=== PATIENT | female | born 1965 | race American Indian/Alaskan Native ===

== ENCOUNTER 2018-04-29 03:52 | Emergency (ER) | payer MEDICARE ==
--- NOTE | 2018-04-29 06:20 | XRay Report ---
FINAL REPORT PROCEDURE: XR CHEST ROUTINE 2V TECHNIQUE: PA and lateral chest radiographs were obtained. CPT 40074 HISTORY: SOB COMPARISON: No prior studies are available for comparison. FINDINGS: Heart: Normal. Mediastinum/Vessels: Normal. Lungs/Pleural space: Normal. Bony thorax: No acute osseous abnormality. Other: IMPRESSION: Normal examination.
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
[2018-04-29] MEDS ORDERED: ULTRAM PO ONE (10:10)
[2018-04-29] MEDS ORDERED: ULTRAM ONE (11:00)
[2018-04-29 11:03] VITALS: BP 167/89
== END 2018-04-29 10:40 | disposition home or self-care (01) ==
LOC: ED 03:52
DX: J06.9 Acute upper respiratory infection, unspecified (principal); M54.16 Radiculopathy, lumbar region; M19.90 Unspecified osteoarthritis, unspecified site; J45.909 Unspecified asthma, uncomplicated; F41.9 Anxiety disorder, unspecified; F20.9 Schizophrenia, unspecified; E11.43 Type 2 diabetes mellitus with diabetic autonomic (poly)neuropathy; K31.84 Gastroparesis; M10.9 Gout, unspecified; Z90.49 Acquired absence of other specified parts of digestive tract; Z79.4 Long term (current) use of insulin; Z79.899 Other long term (current) drug therapy; Z88.8 Allergy status to other drugs, medicaments and biological substances; Z91.013 Allergy to seafood
CPT/HCPCS: 71046; 82962; 93005; 93010; 99283

== ENCOUNTER 2019-09-06 08:56 | Emergency (ER) | payer MEDICARE ==
[2019-09-06 09:21] VITALS: BP 144/84
--- NOTE | 2019-09-06 10:13 | Emergency Department Report ---
Chief Complaint: Extremity Injury, Lower Stated Complaint: RT TOE INJURY/HIP/KNEE PAIN Time Seen by Provider: 09/06/19 10:02 - HPI History of Present Illness: Patient is a 53-year-old female presents emergency room with complaints of chronic right small toe pain that occurred on 08/01/19. She states that she hit it against something on . she that she was concerned because she is diabetic. She has also had chronic right ankle pain for on and off for se veral months. Denies any injury to the ankle. she has not seen anybody for these complaints. denies any fever, drainage, ulceration, blister, numbness, weakness, difficulty ambulating. she says she has been taking tramadol but still has discomfort. she states she is out of her tramadol and needs a refill. VSS on exam: FROM of the BLE no bony TTP of the BLE, no deformities right small toe with very small amount of edema, there is small amount of dried blood present to the end of the right small toenail, pt is able to move the right small toe with no difficulty there is no ulcerations or blisters, there is no ulceration between the toes there is no erythema or increased warmth compartments are soft no skin changes neurovascularly intact no signs of septic joint, no signs of diabetic ulcer, no signs of deformity, no signs of gout, no signs of infection given that this is chronic in nature will refer pt to orthopedic and podiatry pt is presenting with a non medical emergency at this time medical screening examination performed and there is no threat to life or limb at this time pt referred to the appropriate resources and discussed strict return precautions I looked pt up on [employer] aware she received on 09/03/2019: tramadol 50 mg :90 tablets oxycodone 10 mg :80 tablets alprazolam 1 mg :60 tablets It appears the patient may be exhibiting drug-seeking behavior, will not be prescribing patient any more opioids. Advised patient that she can take Tylenol over the counter. - Exam Vital Signs: Vital Signs 09/06/19 09:19 Temperature 98.6 F Pulse Rate 97 H Respiratory 20 Rate Blood Pressure 144/84 [Right] O2 Sat by Pulse 95 Oximetry MSE screening note: Focused history and physical exam performed. ED Disposition for MSE Clinical Impression: Chronic toe pain, right foot Chronic ankle pain Qualifiers: Laterality: right Qualified Code(s): M25.571 - Pain in right ankle and joints of right foot Disposition: MED SCREENING EXAM-LEFT Is pt being admited?: No Does the pt Need Aspirin: No Condition: Stable Instructions: Arthralgia (ED) Additional Instructions: Please follow-up with an orthopedic doctor or aircraft communicator in the next 2-3 days. May take Tylenol as needed for discomfort. May soak in epsom salt. May use ice for 15 minutes at a time. May use elevation of the leg. Return to the emergency room for any new or worsening symptoms Referrals: PERLITA ARMAS MD [Staff Physician] - 2-3 Days [facility] [Provider Group] - 2-3 Days JEANNINE GARCIA DPM [Staff Physician] - 2-3 Days MALIA FAUSTIN MD [Staff Physician] - 2-3 Days Time of Disposition: 10:11 Print Language: HAITIAN
== END 2019-09-06 11:49 | disposition left against medical advice (07) ==
LOC: ED 08:56
DX: M25.571 Pain in right ankle and joints of right foot (principal); M79.674 Pain in right toe(s); G89.29 Other chronic pain
CPT/HCPCS: 99281

== ENCOUNTER 2019-11-28 12:27 | Emergency (ER) | payer MEDICARE ==
--- NOTE | 2019-11-28 13:36 | Emergency Department Report ---
ED General Adult HPI - General Chief complaint: Abdominal Pain Stated complaint: VOMIT 3DAYS/STOMACH PAIN Time Seen by Provider: 11/28/19 13:32 Source: patient, RN notes reviewed, old records reviewed Mode of arrival: Ambulatory Limitations: Physical Limitation - History of Present Illness Initial comments: Patient is a 53-year-old female with a history of diabetes and obesity, distant history of cholecystectomy, presenting to the ER with a complaint of 3 days diffuse abdominal pain, cramping, nausea, vomiting, weakness, malaise and fatigue. She has had this in the past. She is not sure if she carries a formal diagnosis of gastroparesis. There is no complaint of headache, neck pain, chest pain, shortness of breath, urinary symptoms, denies fever, cough, and exposure to the coronavirus. The abdominal pain is diffuse, cramping, all over, does not radiate anywhere, and does not have relieving factors that she is aware of, with the exception of rest, certain positions, worsens when she attempts to eat and/or drink. -: Gradual, days(s) Location: abdomen Radiation: other Quality: other Consistency: other Improves with: other Worsens with: other Associated Symptoms: other - Related Data Home Medications Medication Instructions Recorded Confirmed Last Taken risperiDONE [risperiDONE ODT] 0.25 mg PO BID 01/07/14 09/03/15 07/07/15 Insulin NPH Hum/Reg Insulin Hm 50 unit SQ QAM 07/09/14 09/03/15 09/02/15 [NovoLIN 70-30 100 Unit/ml Vial] Insulin NPH Hum/Reg Insulin Hm 40 unit SQ QHS 09/03/15 09/03/15 Unknown [HumuLIN 70-30 Vial] Previous Rx's Medication Instructions Recorded Last Taken Type Omeprazole [PriLOSEC] 20 mg PO DAILY #30 capsule. 09/03/15 Unknown Rx Ondansetron [Zofran Odt] 4 mg PO Q6HR PRN #20 tab.rapdis 09/03/15 Unknown Rx ALBUTEROL Inhaler(NF) [VENTOLIN 1 puff IH Q4HR PRN #1 inha 04/29/18 Unknown Rx Inhaler(NF)] Benzonatate [Tessalon Perles] 100 mg PO Q8HR PRN #20 capsule 04/29/18 Unknown Rx predniSONE [Prednisone] 50 mg PO DAILY #5 tablet 04/29/18 Unknown Rx Amoxicillin/Potassium Clav 1 each PO BID #10 tablet 11/28/19 Unknown Rx [Augmentin 875-125 Tablet] Famotidine [Pepcid] 20 mg PO BID #60 tablet 11/28/19 Unknown Rx Metoclopramide [Reglan] 10 mg PO QID PRN #30 tablet 11/28/19 Unknown Rx Allergies Allergy/AdvReac Type Severity Reaction Status Date / Time shellfish derived Allergy Swelling Verified 09/06/19 09:15 NSAIDS (Non-Steroidal AdvReac Vomiting Verified 09/06/19 09:15 Anti-Inflamma ED Review of Systems ROS: Stated complaint: VOMIT 3DAYS/STOMACH PAIN Other details as noted in HPI Constitutional: denies: fever Eyes: denies: eye discharge ENT: denies: congestion Respiratory: denies: wheezing Cardiovascular: denies: syncope Gastrointestinal: abdominal pain, nausea, vomiting. denies: constipation Genitourinary: as per HPI. denies: dysuria Musculoskeletal: as per HPI Skin: as per HPI Neurological: as per HPI Psychiatric: as per HPI Hematological/Lymphatic: as per HPI ED Past Medical Hx - Past Medical History Previous Medical History?: Yes Hx Congestive Heart Failure: No Hx Diabetes: Yes Hx Arthritis: Yes Hx Psychiatric Treatment: Yes (anxiety; schizoprenia) Hx Asthma: Yes Hx COPD: No Additional medical history: Gastroparesis. gout - Surgical History Past Surgical History?: Yes Hx Cholecystectomy: Yes (2006) Additional Surgical History: Cholecystectomy - Social History Smoking Status: Never Smoker Substance Use Type: None - Medications Home Medications: Home Medications Medication Instructions Recorded Confirmed Last Taken Type risperiDONE [risperiDONE ODT] 0.25 mg PO BID 01/07/14 09/03/15 07/07/15 History Insulin NPH Hum/Reg Insulin Hm 50 unit SQ QAM 07/09/14 09/03/15 09/02/15 History [NovoLIN 70-30 100 Unit/ml Vial] Insulin NPH Hum/Reg Insulin Hm 40 unit SQ QHS 09/03/15 09/03/15 Unknown History [HumuLIN 70-30 Vial] Omeprazole [PriLOSEC] 20 mg PO DAILY #30 capsule. 09/03/15 Unknown Rx Ondansetron [Zofran Odt] 4 mg PO Q6HR PRN #20 tab.rapdis 09/03/15 Unknown Rx ALBUTEROL Inhaler(NF) [VENTOLIN 1 puff IH Q4HR PRN #1 inha 04/29/18 Unknown Rx Inhaler(NF)] Benzonatate [Tessalon Perles] 100 mg PO Q8HR PRN #20 capsule 04/29/18 Unknown Rx predniSONE [Prednisone] 50 mg PO DAILY #5 tablet 04/29/18 Unknown Rx Amoxicillin/Potassium Clav 1 each PO BID #10 tablet 11/28/19 Unknown Rx [Augmentin 875-125 Tablet] Famotidine [Pepcid] 20 mg PO BID #60 tablet 11/28/19 Unknown Rx Metoclopramide [Reglan] 10 mg PO QID PRN #30 tablet 11/28/19 Unknown Rx ED Physical Exam - General Limitations: Physical Limitation General appearance: alert, anxious, in distress, obese - Head Head exam: Present: atraumatic, normocephalic - Eye Eye exam: Present: normal appearance - ENT ENT exam: Present: normal exam, normal orophraynx, mucous membranes moist, normal external ear exam - Neck Neck exam: Present: normal inspection, full ROM. Absent: tenderness, meningismus - Respiratory Respiratory exam: Present: normal lung sounds bilaterally. Absent: respiratory distress - Cardiovascular Cardiovascular Exam: Present: regular rate, normal rhythm, normal heart sounds. Absent: bradycardia, tachycardia, irregular rhythm, systolic murmur, diastolic murmur, rubs, gallop - GI/Abdominal GI/Abdominal exam: Present: soft. Absent: distended, tenderness, guarding, rebound, rigid, pulsatile mass - Extremities Exam Extremities exam: Present: normal inspection, full ROM, other (2+ pulses noted in the bilateral upper and lower extremities. There is no palpable cord. negative Homans sign. Muscular compartments are soft. The pelvis is stable.). Absent: pedal edema, calf tenderness - Back Exam Back exam: Present: normal inspection, full ROM. Absent: tenderness, CVA tenderness (R), CVA tenderness (L), paraspinal tenderness, vertebral tenderness - Neurological Exam Neurological exam: Present: alert, other (No facial droop. Tongue midline. Extraocular movements intact bilaterally. Facial sensation intact to light touch in V1, V2, V3 distribution bilaterally. 5 and a 5 strength in 4 extremities. Sensation intact to light touch in 4 extremities.). Absent: motor sensory deficit - Psychiatric Psychiatric exam: Present: anxious - Skin Skin exam: Present: warm, dry, intact, normal color. Absent: rash ED Course Vital Signs 11/28/19 11/28/19 11/28/19 12:29 13:38 14:00 Temperature 99.8 F H Pulse Rate 96 H Respiratory 20 Rate Blood Pressure 170/97 195/70 Blood Pressure [Left] O2 Sat by Pulse 99 99 100 Oximetry 11/28/19 11/28/19 11/28/19 14:31 15:01 15:57 Temperature Pulse Rate 97 H Respiratory 14 Rate Blood Pressure 189/74 177/67 Blood Pressure 175/80 [Left] O2 Sat by Pulse 93 95 100 Oximetry 11/28/19 11/28/19 11/28/19 16:00 16:31 17:01 Temperature Pulse Rate 94 H 101 H 100 H Respiratory 14 17 21 Rate Blood Pressure 182/84 160/79 177/86 Blood Pressure [Left] O2 Sat by Pulse 98 99 98 Oximetry 11/28/19 11/28/19 17:31 18:01 Temperature Pulse Rate 99 H 100 H Respiratory 23 12 Rate Blood Pressure 167/78 173/80 Blood Pressure [Left] O2 Sat by Pulse 96 99 Oximetry - Reevaluation(s) Reevaluation #1: 11/28/19 13:36 ga ladle watcher aware Filled ID Written Drug QTY Days Prescriber Rx # Pharmacy * Refills Daily Dose Pymt 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 11/22/2019 2 11/15/2019 ACETAMINOPHEN-COD #3 TABLET 20.0 6 TE DIC [id number] [facility] ([id number]) 0 15.0 [facility] [place] Ins [place] 11/09/2019 2 10/03/2019 ALPRAZOLAM 1 MG TABLET 60.0 30 [place] ME[place] [id number] [facility] ([id number]) 0 [place] 11/05/2019 2 10/03/2019 TRAMADOL HCL 50 MG TABLET 60.0 30 [place] [facility] [id number] [facility] ([id number]) 1 10.0 [place] 11/01/2019 3 10/03/2019 OXYCODONE-ACETAMINOPHEN 10-325 80.0 27 [place] [facility] [id number] [facility] ([id number]) 0 44.44 [place] 10/25/2019 2 10/18/2019 ACETAMINOPHEN-COD #3 TABLET 90.0 30 TE DIC [id number] [facility] ([id number]) 0 13.5 [place] [place] 10/09/2019 2 10/03/2019 TRAMADOL HCL 50 MG TABLET 60.0 30 [facility] [id number] [facility] ([id number]) 0 10.0 [place] 10/09/2019 2 10/03/2019 PREGABALIN 75 MG CAPSULE 60.0 30 [place] [facility] [id number] [facility] (36) 0 [place] 10/03/2019 2 10/03/2019 OXYCODONE-ACETAMINOPHEN 10-325 80.0 30 [place] [facility] [id number] [facility] ([id number]) 0 40.0 [place] 10/03/2019 2 10/03/2019 ALPRAZOLAM 1 MG TABLET 60.0 30 [place] [id number] [facility] ([id number][place] 10/01/2019 2 09/25/2019 ACETAMINOPHEN-COD #3 TABLET 30.0 7 TE DIC [id number] [facility] ([id number]) 0 19.29 [place] 09/03/2019 2 09/03/2019 TRAMADOL HCL 50 MG TABLET 90.0 30 [place] [facility] [id number] [facility] ([id number]) 0 15.0 [place] 09/03/2019 2 09/03/2019 OXYCODONE-ACETAMINOPHEN 10-325 80.0 23 [place] [facility] [id number] [facility] ([id number]) 0 52.17 [place] 09/03/2019 2 09/03/2019 ALPRAZOLAM 1 MG TABLET 60.0 30 [place] [facility] [id number] [facility] ([id number]) 0 [place] 08/03/2019 1 08/03/2019 TRAMADOL HCL 50 MG TABLET 90.0 30 [place] MEK [id number] [facility] ([id number]) 0 15.0 [place] 08/03/2019 1 08/03/2019 OXYCODONE-ACETAMINOPHEN 10-325 80.0 27 [place] [facility] [id number] [facility] ([id number]) 0 44.44 [place] 08/03/2019 1 08/03/2019 ALPRAZOLAM 1 MG TABLET 60.0 30 [place] [facility] [id number] [facility] ([id number]) 0 [place] 07/05/2019 2 06/05/2019 OXYCODONE-ACETAMINOPHEN 10-325 80.0 30 [place] [facility] [id number] [facility] ([id number]) 0 40.0 [place] 07/05/2019 2 06/08/2019 TRAMADOL HCL 50 MG TABLET 90.0 30 [place] [facility] [id number] [facility] ([id number]) 1 15.0 [place] 07/04/2019 2 06/05/2019 ALPRAZOLAM 1 MG TABLET 60.0 30 [place] [id number] [facility] ([id number]) 1 [place] 06/08/2019 2 06/08/2019 TRAMADOL HCL 50 MG TABLET 90.[address] [facility] [id number] [facility] ([id number]) 0 15.0 [place] 06/05/2019 2 06/05/2019 OXYCODONE-ACETAMINOPHEN 10-[address] [facility] [id number] [facility] ([id number]) 0 46.15 [place] 06/05/2019 2 06/05/2019 ALPRAZOLAM 1 MG TABLET 60.[address] [facility] [id number] [facility] ([id number]) 0 [place] 05/11/2019 2 05/09/2019 ACETAMINOPHEN-COD #[address] [facility] [id number] [facility] ([id number]) 0 13.5 [place] 05/06/2019 2 04/06/2019 OXYCODONE-ACETAMINOPHEN 10-325 80.0 30 [place] [id number] [facility] ([id number]) 0 40.0 [place] 05/03/2019 2 04/06/2019 TRAMADOL HCL 50 MG TABLET 75.[address] [facility] [id number] [facility] ([id number]) 1 12.5 [place] Reevaluation #2: 11/28/19 14:24 Differential diagnosis, including but not limited to: Gastroparesis, cyclic vomiting syndrome, narcotic bowel syndrome, dehydration, electrolyte derangement, obstruction Assessment and plan: 53-year-old female who is obese with diabetes, prescription monitoring program demonstrates multiple controlled substances, likely presenting with gastroparesis, and/or possible narcotic bowel syndrome. She is afebrile with reassuring vital signs and protecting her airway. Abdomen is soft and benign, without rebound, guarding or peritoneal signs. Suspect gastroparesis. Check basic laboratory studies, EKG, urinalysis, noncontrast CT scan of the abdomen pelvis, give fluids and haloperidol, famotidine, and reassess after initial data points. Reevaluation #3: 11/28/19 15:03 Patient sleeping comfortably at this time, and in no acute distress. CT scan shows no obstruction. Even lack of diarrhea, lack of tenderness, lack of tenesmus, lack of urgency, do not clinically favor colitis. Reevaluation #4: 11/28/19 15:54 Laboratory studies reviewed and appreciated Blood glucose is chronically elevated, this does not require emergent intervention as this is a chronic issue. Patient can follow-up with her outpa tient primary care doctor for chronic hyperglycemia. She is suitable for trial of outpatient management at this time. ED Medical Decision Making - Lab Data Result diagrams: 11/28/19 14:48 11/28/19 13:11 Vital Signs 11/28/19 12:29 Temperature 99.8 F H Pulse Rate 96 H Respiratory 20 Rate Blood Pressure 170/97 O2 Sat by Pulse 99 Oximetry - EKG Data -: EKG Interpreted by Nc EKG shows normal: sinus rhythm Rate: normal - EKG Data 11/28/19 14:44 Sinus rhythm, 91 bpm, normal axis, QTC prolonged, poor R wave progression, , abnormal EKG, not a STEMI, motion artifact, unchanged from prior EKG from April 2018. - Radiology Data Radiology results: pending, report reviewed, image reviewed Print Report Referring Physician: RUBIN SULLIVAN Patient Name: CINDY ARMAS Date of : 1965 Sex: Female Report Date: 2019-11-28 Report Status: Finalized Findings [address] [address] Cat Scan Report Signed Patient: CINDY ARMAS MR#: [id number] : 1965 Acct:[id number] Age/Sex: 53 / F ADM Date: 11/28/19 Loc: ED Attending Dr: Ordering Physician: RUBIN SULLIVAN MD Date of Service: 11/28/19 Procedure(s): CT abdomen pelvis wo con Accession Number(s): [id number] cc: RUBIN SULLIVAN MD CT ABDOMEN AND PELVIS WITHOUT CONTRAST HISTORY: MAIN: abd pain n/v X 48 HR. COMPARISON: CT abdomen/pelvis from 07/08/2015 TECHNIQUE: CT images of the abdomen and pelvis were obtained without administration of intravenous contrast. All CT scans at this location are performed using CT dose reduction for ALARA by means of automated exposure control. FINDINGS: Lungs/bones: The lung bases are clear. There are degenerative changes within the spine and pelvis with no acute osseous abnormality identified. Abdomen/pelvis: The gallbladder is surgically absent. The liver, spleen, pancreas, kidneys, and proximal GI tract appear unremarkable. There is mild bilateral adrenal thickening. Urinary bladder and reproductive organs are unremarkable with fallopian tube clips again noted. No pelvic free fluid or acute colonic abnormality identified. Collapsed appearance of colon versus very mild wall thickening in the descending/sigmoid colon region. The appendix is normal. IMPRESSION: 1. Collapsed appearance of colon versus very mild wall thickening in the descending/sigmoid colon region. Correlate for potential colitis. Otherwise unremarkable exam. Signer Name: Keenan Mar MD Signed: 11/28/2019 2:52 PM Workstation Name: [id number] Transcribed By: JESSICA Dictated By: Keenan Mar MD Electronically Authenticated By: Keenan Mar MD Signed Date/Time: 11/28/19 1452 DD/ 1449 TD/TT: Critical care attestation.: If time is entered above; I have spent that time in minutes in the direct care of this critically ill patient, excluding procedure time. ED Disposition Clinical Impression: Gastroparesis Disposition: DC-01 TO HOME OR SELFCARE Is pt being admited?: No Does the pt Need Aspirin: No Condition: Stable Additional Instructions: Take the prescribed medications as needed and directed. Suspect that patient likely has gastroparesis, and possible superimposed narcotic bowel syndrome. Recommend that patient de-escalate and minimize use of opioid controlled substances, as these may be contributing to symptoms. Recommend that patient lose weight, and consume a diabetic appropriate diet, including plenty of water, lean protein, fiber, vegetables, and avoid consumption of simple carbohydrates, sugar, processed food, and soda. Symptoms will likely wax and wane for weeks and months. Please follow-up with your primary care doctor or leadership development consultant within the next 7 to 10 days. Please return to the emergency room right away with new, worsened or different symptoms, or symptoms not present on the initial emergency room evaluation. Avoid consumption of Motrin, ibuprofen, Naprosyn, Aleve, heavy and/or spicy foods, alcohol consumption, patient may take [id number] Tylenol as needed for breakthrough pain. Prescriptions: Amoxicillin/Potassium Clav [Augmentin 875-125 Tablet] 1 each PO BID #10 tablet Famotidine [Pepcid] 20 mg PO BID #60 tablet Metoclopramide [Reglan] 10 mg PO QID PRN #30 tablet PRN Reason: Nausea Referrals: CASA BECERRA MD [Staff Physician] - 3-5 Days EKTA SHARMA MD [Staff Physician] - 3-5 Days
[2019-11-28] MEDS ORDERED: FAMOTIDINE 20 MG/2 ML INJ IV ONE (13:41)
[2019-11-28] MEDS ORDERED: HALOPERIDOL LACTATE 5 MG/1 ML INJ IM PRN (13:41)
[2019-11-28] MEDS ORDERED: SODIUM CHLORIDE 0.9% 500 ML 500 ML IV ONE (13:42)
[2019-11-28] MEDS ORDERED: HALOPERIDOL LACTATE 5 MG/1 ML INJ IM ONE (13:42)
--- NOTE | 2019-11-28 14:56 | Cat Scan Report ---
CT ABDOMEN AND PELVIS WITHOUT CONTRAST HISTORY: MAIN: abd pain n/v X 48 HR. COMPARISON: CT abdomen/pelvis from 07/08/2015 TECHNIQUE: CT images of the abdomen and pelvis were obtained without administration of intravenous co ntrast. All CT scans at this location are performed using CT dose reduction for ALARA by means of au tomated exposure control. FINDINGS: Lungs/bones: The lung bases are clear. There are degenerative changes within the spine and pelvis wi th no acute osseous abnormality identified. Abdomen/pelvis: The gallbladder is surgically absent. The liver, spleen, pancreas, kidneys, and prox imal GI tract appear unremarkable. There is mild bilateral adrenal thickening. Urinary bladder and reproductive organs are unremarkable with fallopian tube clips again noted. No pe lvic free fluid or acute colonic abnormality identified. Collapsed appearance of colon versus very mi ld wall thickening in the descending/sigmoid colon region. The appendix is normal. IMPRESSION: 1. Collapsed appearance of colon versus very mild wall thickening in the descending/sigmoid colon reg ion. Correlate for potential colitis. Otherwise unremarkable exam. Signer Name: Keenan Mar MD Signed: 11/28/2019 2:52 PM Workstation Name: [id number]
[2019-11-28 15:08] LABS: Hematocrit 36.1 % (30.3-42.9); Hemoglobin 11.9 gm/dl (10.1-14.3); Mean Corpuscular HGB Conc 33 % (30-34); Mean Corpuscular Volume 88 fl (79-97); Platelet Count 217 K/mm3 (140-440); Red Blood Count 4.09 M/mm3 (3.65-5.03); Red Cell Distribution Width 12.8 % (13.2-15.2)
[2019-11-28 15:17] LABS: Bilirubin,Urine NEG (Negative); Blood,Urine LG (Negative); Color,Urine Straw (Yellow); Mucus,Urine FEW /HPF; Urobilinogen,Urine < 2.0 mg/dL (<2.0)
[2019-11-28 15:18] LABS: RBC,Urine > 182.0 /HPF (0.0-6.0)
[2019-11-28 15:19] LABS: WBC,Urine > 182.0 /HPF (0.0-6.0)
[2019-11-28 15:46] LABS: Albumin 4.8 g/dL (3.9-5); Calcium 9.8 mg/dL (8.4-10.2)
[2019-11-28 18:28] VITALS: BP 173/80
== END 2019-11-28 18:35 | disposition home or self-care (01) ==
LOC: ED 12:27
DX: E11.43 Type 2 diabetes mellitus with diabetic autonomic (poly)neuropathy (principal); K31.84 Gastroparesis; M13.88 Other specified arthritis, other site; J45.909 Unspecified asthma, uncomplicated; F20.89 Other schizophrenia; F41.9 Anxiety disorder, unspecified; M10.9 Gout, unspecified; Z90.49 Acquired absence of other specified parts of digestive tract; Z79.4 Long term (current) use of insulin; Z79.899 Other long term (current) drug therapy; Z91.013 Allergy to seafood; Z88.6 Allergy status to analgesic agent
CPT/HCPCS: 36415; 74176; 80053; 81001; 82550; 82962; 83690; 83735; 85027; 93005; 96372; 96374; 99285; J1630; J7040

== ENCOUNTER 2020-05-29 09:16 | Emergency (ER) | payer MEDICARE ==
[2020-05-29] MEDS ORDERED: SODIUM CHLORIDE 0.9% 1000 ML 1,000 ML IV ONE (10:07)
[2020-05-29] MEDS ORDERED: ONDANSETRON 4 MG/2 ML INJ IV ONE ×2 (10:07→11:40)
[2020-05-29] MEDS ORDERED: MORPHINE 4 MG/1 ML INJ IV ONE ×2 (10:07→12:39)
--- NOTE | 2020-05-29 10:09 | Emergency Department Report ---
HPI - General Chief Complaint: Abdominal Pain Time Seen by Provider: 05/29/20 09:54 - HPI HPI: This is a 54-year-old female presents to the emergency department with a complaint of a 4 to 5-day history of upper abdominal pain, nausea, vomiting. She has not taken anything for symptoms prior to presentation. She has been unable to take her home medications secondary to the vomiting. She denies any fever, dysuria, vaginal bleeding or discharge. She has a past medical history that includes arthritis, asthma, diabetes, gastroparesis, gout, and she has a psychiatric history of anxiety and schizophrenia. No recent travel or sick contacts at home. Her primary care physician is Dr. Sharma. No alleviating factors. The symptoms worsen when she tries to eat or drink. ED Past Medical Hx - Past Medical History Previous Medical History?: Yes Hx Congestive Heart Failure: No Hx Diabetes: Yes Hx Arthritis: Yes Hx Psychiatric Treatment: Yes (anxiety; schizoprenia) Hx Asthma: Yes Hx COPD: No Additional medical history: Gastroparesis. gout - Surgical History Past Surgical History?: Yes Hx Cholecystectomy: Yes (2006) Additional Surgical History: Cholecystectomy - Social History Smoking Status: Never Smoker Substance Use Type: None - Medications Home Medications: Home Medications Medication Instructions Recorded Confirmed Last Taken Type risperiDONE [risperiDONE ODT] 0.25 mg PO BID 01/07/14 09/03/15 07/07/15 History Insulin NPH Hum/Reg Insulin Hm 50 unit SQ QAM 07/09/14 09/03/15 09/02/15 History [NovoLIN 70-30 100 Unit/ml Vial] Insulin NPH Hum/Reg Insulin Hm 40 unit SQ QHS 09/03/15 09/03/15 Unknown History [HumuLIN 70-30 Vial] Omeprazole [PriLOSEC] 20 mg PO DAILY #30 capsule. 09/03/15 Unknown Rx Ondansetron [Zofran Odt] 4 mg PO Q6HR PRN #20 tab.rapdis 09/03/15 Unknown Rx ALBUTEROL Inhaler(NF) [VENTOLIN 1 puff IH Q4HR PRN #1 inha 04/29/18 Unknown Rx Inhaler(NF)] Benzonatate [Tessalon Perles] 100 mg PO Q8HR PRN #20 capsule 04/29/18 Unknown Rx predniSONE [Prednisone] 50 mg PO DAILY #5 tablet 04/29/18 Unknown Rx Amoxicillin/Potassium Clav 1 each PO BID #10 tablet 11/28/19 Unknown Rx [Augmentin 875-125 Tablet] Metoclopramide [Reglan] 10 mg PO QID PRN #30 tablet 11/28/19 Unknown Rx Dicyclomine [Bentyl] 10 mg PO QID #20 capsule 05/29/20 Unknown Rx Famotidine [Pepcid] 20 mg PO BID #60 tablet 05/29/20 Unknown Rx Ondansetron [Zofran Odt] 4 mg PO Q8HR PRN #15 tab.rapdis 05/29/20 Unknown Rx ED Review of Systems ROS: Stated complaint: ABD PAIN/N/V Other details as noted in HPI Comment: All other systems reviewed and negative Constitutional: denies: chills, fever Eyes: denies: eye pain, vision change ENT: denies: ear pain, throat pain Respiratory: denies: cough, shortness of breath Cardiovascular: denies: chest pain, palpitations Gastrointestinal: abdominal pain, nausea, vomiting Genitourinary: denies: dysuria, discharge Musculoskeletal: denies: back pain, arthralgia Skin: denies: rash, lesions Neurological: denies: headache, weakness Physical Exam - Physical Exam Vital Signs: Vital Signs 05/29/20 09:32 Temperature 99.5 F Pulse Rate 110 H Respiratory 18 Rate Blood Pressure 116/76 O2 Sat by Pulse 97 Oximetry Physical Exam: GENERAL: The patient is well-developed well-nourished. HENT: Normocephalic. Atraumatic. Patient has moist mucous membranes. EYES: Extraocular motions are intact. NECK: Supple. Trachea is midline. CHEST/LUNGS: Clear to auscultation. There is no respiratory distress noted. HEART/CARDIOVASCULAR: Regular. There is no tachycardia. There is no murmur. ABDOMEN: Abdomen is soft. Generalized abdominal tenderness to palpation. No guarding. Patient has normal bowel sounds. There is no abdominal distention. SKIN: Skin is warm and dry. NEURO: The patient is awake, alert, and oriented. The patient is cooperative. Normal speech. MUSCULOSKELETAL: There is no tenderness or deformity. ED Course Vital Signs 05/29/20 09:32 Temperature 99.5 F Pulse Rate 110 H Respiratory 18 Rate Blood Pressure 116/76 O2 Sat by Pulse 97 Oximetry ED Medical Decision Making - Lab Data Result diagrams: 05/29/20 09:54 05/29/20 09:54 - Radiology Data Radiology results: report reviewed, image reviewed interpreted by me: Abdominal x-ray shows nonspecific nonobstructive bowel gas. CT ABDOMEN AND PELVIS WITHOUT CONTRAST HISTORY: abd pain. Acute generalized abdominal pain COMPARISON: None. TECHNIQUE: CT images of the abdomen and pelvis were obtained without administration of intravenous contrast. All CT scans at this location are performed using CT dose reduction for ALARA by means of automated exposure control. FINDINGS: Lungs/bones: The lung bases are clear. There are degenerative changes in the spine and pelvis with no acute osseous abnormality identified. Abdomen/pelvis: The gallbladder is surgically absent. The liver, spleen, pancreas, adrenals, kidneys, and proximal GI tract appear unremarkable. Urinary bladder and reproductive organs are unremarkable with no pelvic free fluid or acute colonic abnormality. The appendix and terminal ileum appear normal. IMPRESSION: 1. No acute abnormality identified. - Medical Decision Making This patient presents to the emergency department with a few days of some abdominal discomfort, nausea and vomiting. On examination the patient has some mild generalized abdominal tenderness to palpation. The abdomen is soft, nondistended and nontoxic in appearance. Labs show some mild renal insufficiency and hyperglycemia without signs of diabetic ketoacidosis. Patient was given some IV fluid resuscitation, IV insulin, IV analgesia and IV antiemetics. She had an abdominal x-ray, and a CT scan of the abdomen pelvis without contrast that did not show any acute abnormalities. Patient was reevaluated multiple times over multiple hours and is feeling greatly improved. Able to pass an oral challenge. She has good outpatient follow-up with primary care and has been given a referral for gastroenterology. She will return to the emergency department with any worsening of her symptoms or with any acute distress. Critical Care Time: No Critical care attestation.: If time is entered above; I have spent that time in minutes in the direct care of this critically ill patient, excluding procedure time. ED Disposition Clinical Impression: Uncontrolled insulin dependent diabetes mellitus, Gastroparesis Abdominal pain Qualifiers: Abdominal location: generalized Qualified Code(s): R10.84 - Generalized abdominal pain Nausea & vomiting Qualifiers: Vomiting type: unspecified Vomiting Intractability: non-intractable Qualified Code(s): R11.2 - Nausea with vomiting, unspecified Disposition: DC- TO HOME OR SELFCARE Is pt being admited?: No Condition: Stable Instructions: Acute Nausea and Vomiting (ED), Abdominal Pain (ED), Diabetic Hyperglycemia (ED) Additional Instructions: Please follow-up with your primary care physician in the next few days. I am also giving you a referral for a local counterperson, Dr. Morgan, to follow- up regarding your abdominal pains. Increase your oral rehydration. Take your medications as prescribed. Try to stay away from foods that are high in sugar, carbohydrates and starches. Keep a blood sugar log. Return to the emergency department with any worsening of your symptoms, new or concerning symptoms not addressed during this current emergency department visit, or with any acute distress. Prescriptions: Dicyclomine [Bentyl] 10 mg PO QID #20 capsule Famotidine [Pepcid] 20 mg PO BID #60 tablet Ondansetron [Zofran Odt] 4 mg PO Q8HR PRN #15 tab.rapdis PRN Reason: Nausea Referrals: EKTA SHARMA MD [Primary Care Provider] - 2-3 Days SILVIA MORGAN MD [Staff Physician] - 2-3 Days Time of Disposition: 13:10
[2020-05-29 10:40] LABS: Basophils % (Auto) 0.4 % (0.0-1.8); Eosinophils % (Auto) 0.2 % (0.0-4.3); Hematocrit 41.7 % (30.3-42.9); Hemoglobin 13.6 gm/dl (10.1-14.3); Mean Corpuscular HGB Conc 33 % (30-34); Mean Corpuscular Volume 91 fl (79-97); Monocytes # (Auto) 0.7 K/mm3 (0.0-0.8); Monocytes % (Auto) 7.9 % (0.0-7.3); Platelet Count 277 K/mm3 (140-440); Red Blood Count 4.61 M/mm3 (3.65-5.03); Red Cell Distribution Width 12.9 % (13.2-15.2)
[2020-05-29 10:41] LABS: Albumin 4.1 g/dL (3.9-5); Calcium 9.2 mg/dL (8.4-10.2)
[2020-05-29] MEDS ORDERED: INSULIN REGULAR, HUMAN 100 UNIT/ML 3ML VIAL IV SCH (11:00)
--- NOTE | 2020-05-29 11:12 | XRay Report ---
ABDOMEN 3 VIEW(S) INDICATION / CLINICAL INFORMATION: Abd pain. COMPARISON: Chest x-ray from 04/29/2018 FINDINGS: TUBES / LINES: None. BOWEL GAS PATTERN: No significant abnormality. FREE AIR / EXTRALUMINAL GAS: None seen. ADDITIONAL FINDINGS: Patient has had previous cholecystectomy and tubal ligation. IMPRESSION: 1. No significant abnormality. Signer Name: Keenan Mar MD Signed: 05/29/2020 11:02 AM Workstation Name: [id number]
--- NOTE | 2020-05-29 12:31 | Cat Scan Report ---
CT ABDOMEN AND PELVIS WITHOUT CONTRAST HISTORY: abd pain. Acute generalized abdominal pain COMPARISON: None. TECHNIQUE: CT images of the abdomen and pelvis were obtained without administration of intravenous co ntrast. All CT scans at this location are performed using CT dose reduction for ALARA by means of au tomated exposure control. FINDINGS: Lungs/bones: The lung bases are clear. There are degenerative changes in the spine and pelvis with n o acute osseous abnormality identified. Abdomen/pelvis: The gallbladder is surgically absent. The liver, spleen, pancreas, adrenals, kidneys , and proximal GI tract appear unremarkable. Urinary bladder and reproductive organs are unremarkable with no pelvic free fluid or acute colonic a bnormality. The appendix and terminal ileum appear normal. IMPRESSION: 1. No acute abnormality identified. Signer Name: Keenan Mar MD Signed: 05/29/2020 12:26 PM Workstation Name: [id number]
[2020-05-29 13:15] VITALS: BP 180/78
== END 2020-05-29 13:25 | disposition home or self-care (01) ==
LOC: ED 09:16
DX: E11.43 Type 2 diabetes mellitus with diabetic autonomic (poly)neuropathy (principal); K31.84 Gastroparesis; R10.10 Upper abdominal pain, unspecified; R11.2 Nausea with vomiting, unspecified; M19.91 Primary osteoarthritis, unspecified site; F20.9 Schizophrenia, unspecified; F41.9 Anxiety disorder, unspecified; J45.909 Unspecified asthma, uncomplicated; Z90.49 Acquired absence of other specified parts of digestive tract; Z79.4 Long term (current) use of insulin; Z79.2 Long term (current) use of antibiotics; Z79.899 Other long term (current) drug therapy; Z91.013 Allergy to seafood; Z88.6 Allergy status to analgesic agent
CPT/HCPCS: 36415; 74019; 74176; 80053; 82962; 83690; 85025; 96361; 96374; 96375; 96376; 99285; J2270; J2405; J7030; J1815

== ENCOUNTER 2020-07-24 10:09 | Emergency (ER) | payer MEDICARE ==
--- NOTE | 2020-07-24 10:23 | Emergency Department Report ---
Blank Doc - Documentation Documentation: 54-year-old female that presents with abdominal pain with n/v. This initial assessment/diagnostic orders/clinical plan/treatment(s) is/are subject to change based on patient's health status, clinical progression and re- assessment by fellow clinical providers in the ED. Further treatment and workup at subsequent clinical providers discretion. Patient/guardians urged not to elope from the ED as their condition may be serious if not clinically assessed and managed. Initial orders include: 1- Patient sent to [facility] for further evaluation and treatment 2- labs 3- UA
[2020-07-24 11:29] LABS: Basophils % (Auto) 0.4 % (0.0-1.8); Eosinophils % (Auto) 0.2 % (0.0-4.3); Hematocrit 35.2 % (30.3-42.9); Hemoglobin 11.4 gm/dl (10.1-14.3); Lymphocytes # (Auto) 1.8 K/mm3 (1.2-5.4); Mean Corpuscular HGB Conc 33 % (30-34); Mean Corpuscular Volume 90 fl (79-97); Monocytes # (Auto) 0.6 K/mm3 (0.0-0.8); Monocytes % (Auto) 6.2 % (0.0-7.3); Platelet Count 329 K/mm3 (140-440); Red Cell Distribution Width 13.6 % (13.2-15.2)
[2020-07-24 11:40] LABS: Alanine Aminotransferase 8 units/L (7-56); Albumin 4.1 g/dL (3.9-5); BUN/Creatinine Ratio 12; Blood Urea Nitrogen 12 mg/dL (7-17); Calcium 9.6 mg/dL (8.4-10.2); Hemolysis Index 9
[2020-07-24] MEDS ORDERED: ONDANSETRON 4 MG/2 ML INJ IV ONE ×2 (18:22→20:03)
[2020-07-24] MEDS ORDERED: SODIUM CHLORIDE 0.9% 1000 ML 1,000 ML IV ONE (18:22)
[2020-07-24] MEDS ORDERED: MORPHINE 4 MG/1 ML INJ IV ONE (18:22)
--- NOTE | 2020-07-24 18:24 | Emergency Department Report ---
HPI - General Chief Complaint: Abdominal Pain Time Seen by Provider: 07/24/20 10:22 - HPI HPI: 54-year-old -[place] female presents to the emergency department with complaint of nausea, vomiting and generalized abdominal discomfort that the patient says is "gastroparesis." I saw this patient in May of this year for similar symptoms. At that time she had some hyperglycemia without DKA, and negative CT imaging of the abdomen/pelvis. Patient has not taken anything for symptoms prior to presentation today. No recent travel or sick contacts at home. No known exposure to anyone with COVID-19. No known aggravating or alleviating factors. The patient's primary care physician is Dr. Sharma. She has a past medical history of asthma, arthritis, diabetes, gastroparesis, gout, and has a psychiatric history of anxiety and schizophrenia. ED Past Medical Hx - Past Medical History Hx Congestive Heart Failure: No Hx Diabetes: Yes Hx Arthritis: Yes Hx Psychiatric Treatment: Yes (anxiety; schizoprenia) Hx Asthma: Yes Hx COPD: No Additional medical history: Gastroparesis. gout - Surgical History Hx Cholecystectomy: Yes (2006) Additional Surgical History: Cholecystectomy - Social History Smoking Status: Never Smoker Substance Use Type: None - Medications Home Medications: Home Medications Medication Instructions Recorded Confirmed Last Taken Type RX: risperiDONE [risperiDONE ODT] 0.25 mg PO BID 01/07/14 09/03/15 07/07/15 History RX: Insulin NPH Hum/Reg Insulin Hm 50 unit SQ QAM 07/09/14 09/03/15 09/02/15 History [NovoLIN 70-30 100 Unit/ml Vial] Insulin NPH Hum/Reg Insulin Hm 40 unit SQ QHS 09/03/15 09/03/15 Unknown History [HumuLIN 70-30 Vial] Ondansetron [Zofran Odt] 4 mg PO Q6HR PRN #20 tab.rapdis 09/03/15 Unknown Rx RX: Omeprazole [PriLOSEC] 20 mg PO DAILY #30 capsule. 09/03/15 Unknown Rx Benzonatate [Tessalon Perles] 100 mg PO Q8HR PRN #20 capsule 04/29/18 Unknown Rx RX: ALBUTEROL Inhaler(NF) 1 puff IH Q4HR PRN #1 inha 04/29/18 Unknown Rx [VENTOLIN Inhaler(NF)] RX: predniSONE [Prednisone] 50 mg PO DAILY #5 tablet 04/29/18 Unknown Rx Amoxicillin/Potassium Clav 1 each PO BID #10 tablet 11/28/19 Unknown Rx [Augmentin 875-125 Tablet] Metoclopramide [Reglan] 10 mg PO QID PRN #30 tablet 11/28/19 Unknown Rx Dicyclomine [Bentyl] 10 mg PO QID #20 capsule 05/29/20 Unknown Rx RX: Famotidine [Pepcid] 20 mg PO BID #60 tablet 05/29/20 Unknown Rx Dicyclomine [Bentyl] 10 mg PO QID #20 capsule 07/24/20 Unknown Rx RX: Ondansetron [Zofran ODT TAB] 4 mg PO Q8HR PRN #15 tab.rapdis 07/24/20 Unknown Rx ED Review of Systems ROS: Stated complaint: STOMACH PAIN/VOMITTING Other details as noted in HPI Comment: All other systems reviewed and negative Constitutional: denies: chills, fever Eyes: denies: eye pain, vision change ENT: denies: ear pain, throat pain Respiratory: denies: cough, shortness of breath Cardiovascular: denies: chest pain, palpitations Gastrointestinal: abdominal pain, nausea, vomiting Genitourinary: denies: dysuria, discharge Musculoskeletal: denies: back pain, arthralgia Skin: denies: rash, lesions Neurological: denies: headache, weakness Physical Exam - Physical Exam Physical Exam: GENERAL: The patient is well-developed well-nourished. HENT: Normocephalic. Atraumatic. Patient has moist mucous membranes. EYES: Extraocular motions are intact. NECK: Supple. Trachea is midline. CHEST/LUNGS: Clear to auscultation. There is no respiratory distress noted. HEART/CARDIOVASCULAR: Regular. There is no tachycardia. There is no murmur. ABDOMEN: Abdomen is soft. Generalized abdominal tenderness to palpation. No guarding. Patient has normal bowel sounds. There is no abdominal distention. SKIN: Skin is warm and dry. NEURO: The patient is awake, alert, and oriented. The patient is cooperative. Normal speech. MUSCULOSKELETAL: There is no tenderness or deformity. There is no limitation range of motion. ED Course - Reevaluation(s) Reevaluation #1: 07/24/20 21:40 Patient received a round of antiemetics, IV analgesia and was starting to get some IV fluid resuscitation when the left upper extremity IV infiltrated. There is some mild localized swelling but the patient remains neurovascularly intact without any type of compartment syndrome. We attempted an oral challenge but the patient immediately began having nausea with vomiting. I placed a right EJ and the patient will receive another round of IV analgesia, antiemetics and will once again receive IV fluid resuscitation. - EJ/Peripheral Line Arm L Time Out Performed: Yes Indications: nurses unable to establis Skin Cleansed in Sterile Fashion: Yes Size: 20 Dressing Placed: Tegaderm, tape Patient Tolerated Procedure: well Neck R Time Out Performed: Yes Indications: nurses unable to establis Skin Cleansed in Sterile Fashion: Yes Size: 22 Dressing Placed: Tegaderm, tape Patient Tolerated Procedure: well ED Medical Decision Making - Lab Data Result diagrams: 07/24/20 10:35 07/24/20 10:35 Lab Results 07/24/20 07/24/20 07/24/20 Range/Units 10:35 10:35 23:09 WBC 10.3 (4.5-11.0) K/mm3 RBC 3.90 (3.65-5.03) M/mm3 Hgb 11.4 (10.1-14.3) gm/dl Hct 35.2 (30.3-42.9) % MCV 90 (79-97) fl MCH 29 (28-32) pg MCHC 33 (30-34) % RDW 13.6 (13.2-15.2) % Plt Count 329 (140-440) K/mm3 Lymph % (Auto) 17.0 (13.4-35.0) % [place] % (Auto) 6.2 (0.0-7.3) % Eos % (Auto) 0.2 (0.0-4.3) % Baso % (Auto) 0.4 (0.0-1.8) % Lymph # (Auto) 1.8 (1.2-5.4) K/mm3 [place] # (Auto) 0.6 (0.0-0.8) K/mm3 Eos # (Auto) 0.0 (0.0-0.4) K/mm3 Baso # (Auto) 0.0 (0.0-0.1) K/mm3 Seg Neutrophils % 76.2 H (40.0-70.0) % Seg Neutrophils # 7.8 H (1.8-7.7) K/mm3 Sodium 142 (137-145) mmol/L Potassium 3.6 (3.6-5.0) mmol/L Chloride 102.6 (98-107) mmol/L Carbon Dioxide 26 (22-30) mmol/L Anion Gap 17 mmol/L BUN 12 (7-17) mg/dL Creatinine 1.0 (0.6-1.2) mg/dL Estimated GFR > 60 ml/min BUN/Creatinine Ratio 12 % Glucose 305 H (65-100) mg/dL POC Glucose 268 H (70-105) mg/dL Calcium 9.6 (8.4-10.2) mg/dL Total Bilirubin 0.70 (0.1-1.2) mg/dL AST 13 (5-40) units/L ALT 8 (7-56) units/L Alkaline Phosphatase 114 (35-129) units/L Total Protein 8.0 (6.3-8.2) g/dL Albumin 4.1 (3.9-5) g/dL Albumin/Globulin Ratio 1.1 % Lipase 17 (13-60) units/L - Radiology Data Radiology results: image reviewed interpreted by me: Abdominal x-ray shows nonspecific nonobstructive bowel gas - Medical Decision Making This patient presents to the emergency department with a complaint of some generalized abdominal discomfort, nausea and vomiting, that is consistent with her previous gastroparesis. On examination she does have some reproducible abdominal tenderness to palpation, but the abdomen is soft, nondistended and nontoxic in appearance. The abdominal x-ray shows nonspecific nonobstructive bowel gas. Patient's labs are mostly unremarkable including CBC, metabolic panel except for some hyperglycemia with a serum blood sugar of about 300. There is no elevation in the anion gap and she does not appear in diabetic ketoacidosis. Patient was given multiple rounds of IV analgesia, IV antiemetics, some IV fluid resuscitation and eventually was able to pass an oral challenge. An Accu-Chek was done prior to discharge and her blood sugar is down to about 250. Patient has good outpatient follow-up with primary care, but is also been given a referral for gastroenterology. She has been given a prescription for Zofran ODT and Bentyl. She will return to the emergency depa rtment with any worsening of her symptoms or with any acute distress. Critical Care Time: No Critical care attestation.: If time is entered above; I have spent that time in minutes in the direct care of this critically ill patient, excluding procedure time. ED Disposition Clinical Impression: Gastroparesis, Uncontrolled insulin dependent diabetes mellitus Nausea & vomiting Qualifiers: Vomiting type: unspecified Vomiting Intractability: non-intractable Qualified Code(s): R11.2 - Nausea with vomiting, unspecified Abdominal pain Qualifiers: Abdominal location: generalized Qualified Code(s): R10.84 - Generalized abdominal pain HTN (hypertension) Qualifiers: Hypertension type: essential hypertension Qualified Code(s): I10 - Essential (primary) hypertension Disposition: TO HOME OR SELFCARE Is pt being admited?: No Condition: Stable Instructions: Abdominal Pain, Adult, Hyperglycemia, Nausea and Vomiting, Adult, Gastroparesis, Hypertension, Adult, Diabetes Mellitus Type 2 in Adults (ED), Abdominal Pain (ED), Hypertension (ED) Additional Instructions: Please follow-up with your primary care physician in the next few days. I am giving you a referral for [facility] to follow-up regarding your nausea, vomiting, abdominal pain and gastroparesis. Increase your oral rehydration. Take your medications as prescribed. Try to stay away from foods that are high in sugar, carbohydrates, and starches. Keep a blood sugar log. Stay away from foods that are high in salt and caffeinated products. Keep a blood pressure log. Return to the emergency department with any worsening of your symptoms, new or concerning symptoms not addressed during this current emergency department visit, or with any acute distress. Prescriptions: Dicyclomine [Bentyl] 10 mg PO QID #20 capsule RX: Ondansetron [Zofran ODT TAB] 4 mg PO Q8HR PRN #15 tab.rapdis PRN Reason: Nausea Referrals: EKTA SHARMA MD [Staff Physician] - 3-5 Days [facility] [Provider Group] - 3-5 Days Time of Disposition: 23:11
[2020-07-24] MEDS ORDERED: DICYCLOMINE 20 MG TAB PO ONE (20:03)
--- NOTE | 2020-07-24 20:26 | XRay Report ---
ABDOMEN 2 VIEW(S) INDICATION / CLINICAL INFORMATION: Abd pain. COMPARISON: 05/29/2020 FINDINGS: TUBES / LINES: None. BOWEL GAS PATTERN: No significant abnormality. FREE AIR / EXTRALUMINAL GAS: None seen. ADDITIONAL FINDINGS: No significant additional findings. IMPRESSION: 1. No significant abnormality. Signer Name: Lobo Trammell MD Signed: 07/24/2020 8:22 PM Workstation Name: [id number]
[2020-07-24] MEDS ORDERED: HYDROmorphone 1 MG/1 ML INJ IV ONE (20:55)
[2020-07-25 04:38] VITALS: BP 181/82
== END 2020-07-25 01:15 | disposition home or self-care (01) ==
LOC: ED 10:09
DX: E11.43 Type 2 diabetes mellitus with diabetic autonomic (poly)neuropathy (principal); K31.84 Gastroparesis; I10 Essential (primary) hypertension; R11.2 Nausea with vomiting, unspecified; R10.84 Generalized abdominal pain; M19.91 Primary osteoarthritis, unspecified site; F20.9 Schizophrenia, unspecified; F41.9 Anxiety disorder, unspecified; J45.909 Unspecified asthma, uncomplicated; Z90.89 Acquired absence of other organs; Z79.2 Long term (current) use of antibiotics; Z79.899 Other long term (current) drug therapy; Z91.013 Allergy to seafood; Z88.8 Allergy status to other drugs, medicaments and biological substances
CPT/HCPCS: 36415; 36556; 74019; 80053; 82962; 83690; 85025; 96361; 96374; 96375; 96376; 99284; J1170; J2270; J2405; J7030

== ENCOUNTER 2022-01-21 09:17 | Emergency (ER) | payer MEDICARE ==
[2022-01-21] MEDS ORDERED: SODIUM CHLORIDE 0.9% 1000 ML 1,000 ML IV ONE (09:59)
[2022-01-21] MEDS ORDERED: METOCLOPRAMIDE 10 MG/2 ML INJ IV ONE (09:59)
[2022-01-21] MEDS ORDERED: ONDANSETRON 4 MG/2 ML INJ IV ONE (09:59)
--- NOTE | 2022-01-21 10:24 | XRay Report ---
XR chest 1V ap INDICATION / CLINICAL INFORMATION: vomitting, Abdominal Pain COMPARISON: None available. FINDINGS: SUPPORT DEVICES: None. HEART / MEDIASTINUM: No significant abnormality. LUNGS / PLEURA: Lungs are clear. Costophrenic sulci are sharp. No pneumothorax. ADDITIONAL FINDINGS: No significant additional findings. IMPRESSION: 1. No acute findings. Signer Name: Dave Maradiaga MD Signed: 01/21/2022 10:20 AM Workstation Name: [id number]
[2022-01-21] MEDS ORDERED: METOPROLOL TARTRATE 5 MG/5 ML INJ IV ONE ×2 (11:02→13:51)
[2022-01-21 12:32] LABS: BUN/Creatinine Ratio 11; Basophils # (Auto) 0.1 K/mm3 (0.0-0.1); Blood Urea Nitrogen 12 mg/dL (7-17); Calcium 9.4 mg/dL (8.4-10.2); Hematocrit 39.4 % (30.3-42.9); Hemoglobin 12.4 gm/dl (10.1-14.3); Hemolysis Index 3; INR 0.95 (0.87-1.13); Lymphocytes % (Auto) 15.7 % (13.4-35.0); Mean Corpuscular HGB Conc 31 % (30-34); Mean Corpuscular Volume 90 fl (79-97); Monocytes # (Auto) 0.9 K/mm3 (0.0-0.8); Monocytes % (Auto) 6.8 % (0.0-7.3); Platelet Count 289 K/mm3 (140-440); Red Blood Count 4.38 M/mm3 (3.65-5.03)
[2022-01-21] MEDS ORDERED: diphenhydrAMINE 50 MG/ML VIAL IV ONE (13:51)
--- NOTE | 2022-01-21 14:29 | Emergency Department Report ---
ED General Adult HPI - General Chief complaint: Nausea/Vomiting/Diarrhea Stated complaint: NAUSEA/VOMITING Time Seen by Provider: 01/21/22 09:57 Source: patient, EMS Mode of arrival: Stretcher Limitations: No Limitations - History of Present Illness Initial comments: NAUSEA VOMITING X'S 3 DAYS history of diabetes , gastroparesis , request narcotics , no fever no diarrhe ano bleeding -: hour(s) Location: abdomen Radiation: non-radiation Severity scale (0 -10): 2 Quality: aching Consistency: intermittent Improves with: none - Related Data Home Medications Medication Instructions Recorded Confirmed Last Taken risperiDONE [risperiDONE ODT] 0.25 mg PO BID 01/07/14 09/03/15 07/07/15 Insulin NPH Hum/Reg Insulin Hm 50 unit SQ QAM 07/09/14 09/03/15 09/02/15 [NovoLIN 70-30 100 Unit/ml Vial] Insulin NPH Hum/Reg Insulin Hm 40 unit SQ QHS 09/03/15 09/03/15 Unknown [HumuLIN 70-30 Vial] Previous Rx's Medication Instructions Recorded Last Taken Type Omeprazole [PriLOSEC] 20 mg PO DAILY #30 capsule. 09/03/15 Unknown Rx Ondansetron [Zofran Odt] 4 mg PO Q6HR PRN #20 tab.rapdis 09/03/15 Unknown Rx ALBUTEROL Inhaler(NF) [VENTOLIN 1 puff IH Q4HR PRN #1 inha 04/29/18 Unknown Rx Inhaler(NF)] Benzonatate [Tessalon Perles] 100 mg PO Q8HR PRN #20 capsule 04/29/18 Unknown Rx predniSONE [Prednisone] 50 mg PO DAILY #5 tablet 04/29/18 Unknown Rx Amoxicillin/Potassium Clav 1 each PO BID #10 tablet 11/28/19 Unknown Rx [Augmentin 875-125 Tablet] Metoclopramide [Reglan] 10 mg PO QID PRN #30 tablet 11/28/19 Unknown Rx Dicyclomine [Bentyl] 10 mg PO QID #20 capsule 05/29/20 Unknown Rx Famotidine [Pepcid] 20 mg PO BID #60 tablet 05/29/20 Unknown Rx Dicyclomine [Bentyl] 10 mg PO QID #20 capsule 07/24/20 Unknown Rx Ondansetron [Zofran ODT TAB] 4 mg PO Q8HR PRN #15 tab.rapdis 07/24/20 Unknown Rx Allergies Allergy/AdvReac Type Severity Reaction Status Date / Time shellfish derived Allergy Swelling Verified 07/24/20 10:21 NSAIDS (Non-Steroidal AdvReac Vomiting Verified 07/24/20 10:21 Anti-Inflamma ED Review of Systems ROS: Stated complaint: NAUSEA/VOMITING Other details as noted in HPI Constitutional: denies: chills, fever Eyes: denies: eye pain, eye discharge, vision change ENT: denies: ear pain, throat pain Respiratory: denies: cough, shortness of breath, wheezing Cardiovascular: denies: chest pain, palpitations Endocrine: no symptoms reported Gastrointestinal: denies: abdominal pain, nausea, diarrhea Genitourinary: denies: urgency, dysuria, discharge Musculoskeletal: denies: back pain, joint swelling, arthralgia Skin: denies: rash, lesions Neurological: denies: headache, weakness, paresthesias Psychiatric: denies: anxiety, depression Hematological/Lymphatic: denies: easy bleeding, easy bruising ED Past Medical Hx - Past Medical History Hx Congestive Heart Failure: No Hx Diabetes: Yes Hx Arthritis: Yes Hx Psychiatric Treatment: Yes (anxiety; schizoprenia) Hx Asthma: Yes Hx COPD: No Additional medical history: Gastroparesis. gout - Surgical History Hx Cholecystectomy: Yes (2006) Additional Surgical History: Cholecystectomy - Social History Smoking Status: Never Smoker - Medications Home Medications: Home Medications Medication Instructions Recorded Confirmed Last Taken Type risperiDONE [risperiDONE ODT] 0.25 mg PO BID 01/07/14 09/03/15 07/07/15 History Insulin NPH Hum/Reg Insulin Hm 50 unit SQ QAM 07/09/14 09/03/15 09/02/15 History [NovoLIN 70-30 100 Unit/ml Vial] Insulin NPH Hum/Reg Insulin Hm 40 unit SQ QHS 09/03/15 09/03/15 Unknown History [HumuLIN 70-30 Vial] Omeprazole [PriLOSEC] 20 mg PO DAILY #30 capsule. 09/03/15 Unknown Rx Ondansetron [Zofran Odt] 4 mg PO Q6HR PRN #20 tab.rapdis 09/03/15 Unknown Rx ALBUTEROL Inhaler(NF) [VENTOLIN 1 puff IH Q4HR PRN #1 inha 04/29/18 Unknown Rx Inhaler(NF)] Benzonatate [Tessalon Perles] 100 mg PO Q8HR PRN #20 capsule 04/29/18 Unknown Rx predniSONE [Prednisone] 50 mg PO DAILY #5 tablet 04/29/18 Unknown Rx Amoxicillin/Potassium Clav 1 each PO BID #10 tablet 11/28/19 Unknown Rx [Augmentin 875-125 Tablet] Metoclopramide [Reglan] 10 mg PO QID PRN #30 tablet 11/28/19 Unknown Rx Dicyclomine [Bentyl] 10 mg PO QID #20 capsule 05/29/20 Unknown Rx Famotidine [Pepcid] 20 mg PO BID #60 tablet 05/29/20 Unknown Rx Dicyclomine [Bentyl] 10 mg PO QID #20 capsule 07/24/20 Unknown Rx Ondansetron [Zofran ODT TAB] 4 mg PO Q8HR PRN #15 tab.rapdis 07/24/20 Unknown Rx ED Physical Exam - General Limitations: No Limitations General appearance: alert, in no apparent distress - Head Head exam: Present: atraumatic, normocephalic - Eye Eye exam: Present: normal appearance - ENT ENT exam: Present: mucous membranes moist - Neck Neck exam: Present: normal inspection - Respiratory Respiratory exam: Present: normal lung sounds bilaterally. Absent: respiratory distress - Cardiovascular Cardiovascular Exam: Present: regular rate, normal rhythm. Absent: systolic murmur, diastolic murmur, rubs, gallop - GI/Abdominal GI/Abdominal exam: Present: soft, normal bowel sounds - Extremities Exam Extremities exam: Present: normal inspection - Back Exam Back exam: Present: normal inspection - Neurological Exam Neurological exam: Present: alert, oriented X3 - Psychiatric Psychiatric exam: Present: normal affect, normal mood - Skin Skin exam: Present: warm, dry, intact, normal color. Absent: rash ED Course Vital Signs 01/21/22 01/21/22 01/21/22 09:34 09:58 09:59 Temperature 98.4 F Pulse Rate 96 H 102 H Respiratory 16 34 H Rate Blood Pressure Blood Pressure 140/87 [Left] O2 Sat by Pulse 99 100 100 Oximetry 01/21/22 01/21/22 01/21/22 10:00 10:15 10:31 Temperature Pulse Rate 100 H 102 H 87 Respiratory 25 H 25 H 16 Rate Blood Pressure 189/143 185/156 196/85 Blood Pressure [Left] O2 Sat by Pulse 100 100 92 Oximetry 01/21/22 01/21/22 01/21/22 10:45 11:01 11:15 Temperature Pulse Rate 102 H 98 H 79 Respiratory 12 16 18 Rate Blood Pressure 202/93 199/80 199/80 Blood Pressure [Left] O2 Sat by Pulse 97 97 97 Oximetry 01/21/22 01/21/22 01/21/22 11:31 11:45 12:00 Temperature Pulse Rate 80 87 87 Respiratory 16 15 15 Rate Blood Pressure 199/80 188/90 188/90 Blood Pressure [Left] O2 Sat by Pulse 97 97 97 Oximetry 01/21/22 01/21/22 01/21/22 12:15 12:31 12:45 Temperature Pulse Rate Respiratory Rate Blood Pressure 188/90 188/90 190/85 Blood Pressure [Left] O2 Sat by Pulse 100 99 99 Oximetry 01/21/22 01/21/22 01/21/22 13:01 13:15 13:31 Temperature Pulse Rate Respiratory Rate Blood Pressure 197/86 197/86 197/86 Blood Pressure [Left] O2 Sat by Pulse 98 98 98 Oximetry 01/21/22 01/21/22 13:45 14:01 Temperature Pulse Rate Respiratory Rate Blood Pressure 183/63 183/85 Blood Pressure [Left] O2 Sat by Pulse 98 98 Oximetry ED Medical Decision Making - Lab Data Result diagrams: 01/21/22 10:44 01/21/22 10:44 - Medical Decision Making work up unremarkable , vss no distress asking for dilaudid , zofran reglan and neadryl given Critical care attestation.: If time is entered above; I have spent that time in minutes in the direct care of this critically ill patient, excluding procedure time. ED Disposition Clinical Impression: Abdominal pain, Gastroparesis, Opiate dependence Disposition: 01 HOME / SELF CARE / HOMELESS Is pt being admited?: No Does the pt Need Aspirin: No Condition: Stable Referrals: EKTA SHARMA MD [Primary Care Provider] - 3-5 Days
[2022-01-21 15:13] VITALS: BP 190/56
== END 2022-01-21 15:11 | disposition home or self-care (01) ==
LOC: ED 09:17
DX: R10.9 Unspecified abdominal pain (principal); K31.84 Gastroparesis; F11.20 Opioid dependence, uncomplicated; I10 Essential (primary) hypertension; J45.909 Unspecified asthma, uncomplicated
CPT/HCPCS: 36415; 71045; 80048; 82010; 82150; 83690; 85025; 85610; 96361; 96374; 96375; 99284; J1200; J2405; J2765; J7030

== ENCOUNTER 2022-03-06 10:42 | Emergency (ER) | payer MEDICARE ==
[2022-03-06 11:51] LABS: Basophils # (Auto) 0.3 K/mm3 (0.0-0.1); Basophils % (Auto) 2.2 % (0.0-1.8); Eosinophils % (Auto) 0.3 % (0.0-4.3); Hematocrit 35.3 % (30.3-42.9); Hemoglobin 11.1 gm/dl (10.1-14.3); Lymphocytes # (Auto) 1.1 K/mm3 (1.2-5.4); Mean Corpuscular HGB Conc 32 % (30-34); Mean Corpuscular Volume 88 fl (79-97); Monocytes # (Auto) 0.6 K/mm3 (0.0-0.8); Monocytes % (Auto) 5.1 % (0.0-7.3); Platelet Count 293 K/mm3 (140-440); Red Blood Count 4.03 M/mm3 (3.65-5.03); Red Cell Distribution Width 13.7 % (13.2-15.2)
[2022-03-06] MEDS ORDERED: HALOPERIDOL LACTATE 5 MG/1 ML INJ IM ONE (12:10)
[2022-03-06] MEDS ORDERED: ONDANSETRON 4 MG/2 ML INJ IV ONE (12:12)
[2022-03-06 12:13] LABS: Alanine Aminotransferase 10 units/L (7-56); Albumin 4.8 g/dL (3.9-5); BUN/Creatinine Ratio 13; Blood Urea Nitrogen 13 mg/dL (7-17); Calcium 9.7 mg/dL (8.4-10.2); Hemolysis Index 1
--- NOTE | 2022-03-06 12:24 | Emergency Department Report ---
<LORENA CLARKE - Last Filed: 03/06/22 12:22> ED Abdominal Pain HPI - General Chief Complaint: Abdominal Pain Stated Complaint: ABD PAIN GASTROPARESIS Time Seen by Provider: 03/06/22 12:09 Source: patient, EMS Mode of arrival: Stretcher Limitations: No Limitations - History of Present Illness Initial Comments: Patient is a 56-year-old female with history of diabetic gastroparesis presenting the ER with complaint of severe epigastric pain with associated nausea and vomiting. States she is unable to keep anything down. Denies fever or chills. Severity scale (0 -10): 10 - Related Data Home Medications Medication Instructions Recorded Confirmed Last Taken risperiDONE [risperiDONE ODT] 0.25 mg PO BID 01/07/14 09/03/15 07/07/15 Insulin NPH Hum/Reg Insulin Hm 50 unit SQ QAM 07/09/14 09/03/15 09/02/15 [NovoLIN 70-30 100 Unit/ml Vial] Insulin NPH Hum/Reg Insulin Hm 40 unit SQ QHS 09/03/15 09/03/15 Unknown [HumuLIN 70-30 Vial] Previous Rx's Medication Instructions Recorded Last Taken Type Omeprazole [PriLOSEC] 20 mg PO DAILY #30 capsule. 09/03/15 Unknown Rx Ondansetron [Zofran Odt] 4 mg PO Q6HR PRN #20 tab.rapdis 09/03/15 Unknown Rx ALBUTEROL Inhaler(NF) [VENTOLIN 1 puff IH Q4HR PRN #1 inha 04/29/18 Unknown Rx Inhaler(NF)] Benzonatate [Tessalon Perles] 100 mg PO Q8HR PRN #20 capsule 04/29/18 Unknown Rx predniSONE [Prednisone] 50 mg PO DAILY #5 tablet 04/29/18 Unknown Rx Amoxicillin/Potassium Clav 1 each PO BID #10 tablet 11/28/19 Unknown Rx [Augmentin 875-125 Tablet] Metoclopramide [Reglan] 10 mg PO QID PRN #30 tablet 11/28/19 Unknown Rx Famotidine [Pepcid] 20 mg PO BID #60 tablet 05/29/20 Unknown Rx Dicyclomine [Bentyl] 10 mg PO QID #20 capsule 07/24/20 Unknown Rx Ondansetron [Zofran ODT TAB] 4 mg PO Q8HR PRN #15 tab.rapdis 07/24/20 Unknown Rx Metoclopramide [Reglan] 10 mg PO TID #14 tab 01/21/22 Unknown Rx Dicyclomine [Bentyl] 10 mg PO QID #20 capsule 03/06/22 Unknown Rx Promethazine [Phenergan] 25 mg PO Q6HR PRN #20 tab 03/06/22 Unknown Rx Promethazine [Phenergan] 25 mg IA Q6HR PRN #14 supp.rect 03/06/22 Unknown Rx Allergies Allergy/AdvReac Type Severity Reaction Status Date / Time shellfish derived Allergy Swelling Verified 07/24/20 10:21 NSAIDS (Non-Steroidal AdvReac Vomiting Verified 07/24/20 10:21 Anti-Inflamma ED Review of Systems Constitutional: denies: chills, fever Respiratory: denies: cough, shortness of breath, wheezing Cardiovascular: denies: chest pain, palpitations Gastrointestinal: abdominal pain, nausea, vomiting Musculoskeletal: denies: back pain, joint swelling, arthralgia Skin: denies: rash, lesions Neurological: denies: headache, weakness, paresthesias Psychiatric: denies: anxiety, depression ED Past Medical Hx - Past Medical History Hx Congestive Heart Failure: No Hx Diabetes: Yes Hx Arthritis: Yes Hx Psychiatric Treatment: Yes (anxiety; schizoprenia) Hx Asthma: Yes Hx COPD: No Additional medical history: Gastroparesis. gout - Surgical History Hx Cholecystectomy: Yes (2006) Additional Surgical History: Cholecystectomy - Social History Smoking Status: Never Smoker - Medications Home Medications: Home Medications Medication Instructions Recorded Confirmed Last Taken Type risperiDONE [risperiDONE ODT] 0.25 mg PO BID 01/07/14 09/03/15 07/07/15 History Insulin NPH Hum/Reg Insulin Hm 50 unit SQ QAM 07/09/14 09/03/15 09/02/15 History [NovoLIN 70-30 100 Unit/ml Vial] Insulin NPH Hum/Reg Insulin Hm 40 unit SQ QHS 09/03/15 09/03/15 Unknown History [HumuLIN 70-30 Vial] Omeprazole [PriLOSEC] 20 mg PO DAILY #30 capsule. 09/03/15 Unknown Rx Ondansetron [Zofran Odt] 4 mg PO Q6HR PRN #20 tab.rapdis 09/03/15 Unknown Rx ALBUTEROL Inhaler(NF) [VENTOLIN 1 puff IH Q4HR PRN #1 inha 04/29/18 Unknown Rx Inhaler(NF)] Benzonatate [Tessalon Perles] 100 mg PO Q8HR PRN #20 capsule 04/29/18 Unknown Rx predniSONE [Prednisone] 50 mg PO DAILY #5 tablet 04/29/18 Unknown Rx Amoxicillin/Potassium Clav 1 each PO BID #10 tablet 11/28/19 Unknown Rx [Augmentin 875-125 Tablet] Metoclopramide [Reglan] 10 mg PO QID PRN #30 tablet 11/28/19 Unknown Rx Famotidine [Pepcid] 20 mg PO BID #60 tablet 05/29/20 Unknown Rx Dicyclomine [Bentyl] 10 mg PO QID #20 capsule 07/24/20 Unknown Rx Ondansetron [Zofran ODT TAB] 4 mg PO Q8HR PRN #15 tab.rapdis 07/24/20 Unknown Rx Metoclopramide [Reglan] 10 mg PO TID #14 tab 01/21/22 Unknown Rx Dicyclomine [Bentyl] 10 mg PO QID #20 capsule 03/06/22 Unknown Rx Promethazine [Phenergan] 25 mg PO Q6HR PRN #20 tab 03/06/22 Unknown Rx Promethazine [Phenergan] 25 mg IA Q6HR PRN #14 supp.rect 03/06/22 Unknown Rx ED Physical Exam - General Limitations: No Limitations General appearance: alert, other (Appears uncomfortable) - Head Head exam: Present: atraumatic, normocephalic - Respiratory Respiratory exam: Present: normal lung sounds bilaterally. Absent: respiratory distress - Cardiovascular Cardiovascular Exam: Present: regular rate, normal rhythm, normal heart sounds - GI/Abdominal GI/Abdominal exam: Present: soft, tenderness. Absent: distended - Rectal Rectal exam: Present: deferred - Neurological Exam Neurological exam: Present: alert, oriented X3 - Psychiatric Psychiatric exam: Present: normal affect, normal mood - Skin Skin exam: Present: warm, dry, intact, normal color ED Medical Decision Making - Lab Data Result diagrams: 03/06/22 11:32 03/06/22 11:32 ED Disposition Clinical Impression: Gastroparesis, Hyperglycemia due to diabetes mellitus Disposition: 01 HOME / SELF CARE / HOMELESS Condition: Stable Instructions: Hyperglycemia, [id number], Gastroparesis, Diabetes Mellitus Type 2 in Adults (ED), Abdominal Pain (ED) Additional Instructions: Take the medication as prescribed. Follow-up with your doctor or doctor/clinic provided. Return if symptoms worsen as indicated by your discharge instructions. You have been provided a prescription for oral and rectal Phenergan. Please take rectal Phenergan if you continue to vomit and are unable to keep down the oral version of the medication. Prescriptions: Dicyclomine [Bentyl] 10 mg PO QID #20 capsule Promethazine [Phenergan] 25 mg PO Q6HR PRN #20 tab PRN Reason: Nausea Promethazine [Phenergan] 25 mg IA Q6HR PRN #14 supp.rect PRN Reason: Nausea And Vomiting Referrals: THONG DREW MD [Primary Care Provider] - 3-5 Days <MAURO DENNY - Last Filed: 03/06/22 18:29> ED Review of Systems ROS: Stated complaint: ABD PAIN GASTROPARESIS Other details as noted in HPI ED Course Vital Signs 03/06/22 03/06/22 03/06/22 11:07 12:23 18:04 Temperature 98.2 F Pulse Rate 103 H 105 H 98 H Respiratory 18 18 18 Rate Blood Pressure 148/86 195/84 183/81 [Left] O2 Sat by Pulse 96 99 99 Oximetry ED Medical Decision Making - Lab Data Result diagrams: 03/06/22 11:32 03/06/22 11:32 Lab Results 03/06/22 03/06/22 03/06/22 Range/Units 11:32 11:32 17:06 WBC 11.9 H (4.5-11.0) K/mm3 RBC 4.03 (3.65-5.03) M/mm3 Hgb 11.1 (10.1-14.3) gm/dl Hct 35.3 (30.3-42.9) % MCV 88 (79-97) fl MCH 28 (28-32) pg MCHC 32 (30-34) % RDW 13.7 (13.2-15.2) % Plt Count 293 (140-440) K/mm3 Lymph % (Auto) 9.0 L (13.4-35.0) % [place] % (Auto) 5.1 (0.0-7.3) % Eos % (Auto) 0.3 (0.0-4.3) % Baso % (Auto) 2.2 H (0.0-1.8) % Lymph # (Auto) 1.1 L (1.2-5.4) K/mm3 [place] # (Auto) 0.6 (0.0-0.8) K/mm3 Eos # (Auto) 0.0 (0.0-0.4) K/mm3 Baso # (Auto) 0.3 H (0.0-0.1) K/mm3 Seg Neutrophils % 83.4 H (40.0-70.0) % Seg Neutrophils # 10.0 H (1.8-7.7) K/mm3 Sodium 137 (137-145) mmol/L Potassium 3.8 (3.6-5.0) mmol/L Chloride 96.7 L (98-107) mmol/L Carbon Dioxide 21 L (22-30) mmol/L Anion Gap 23 mmol/L BUN 13 (7-17) mg/dL Creatinine 1.0 (0.6-1.2) mg/dL Estimated GFR > 60 ml/min BUN/Creatinine Ratio 13 % Glucose 354 H (65-100) mg/dL POC Glucose 304 H (70-105) mg/dL Calcium 9.7 (8.4-10.2) mg/dL Total Bilirubin 1.00 (0.1-1.2) mg/dL AST 14 (5-40) units/L ALT 10 (7-56) units/L Alkaline Phosphatase 153 H (35-129) units/L Total Protein 7.9 (6.3-8.2) g/dL Albumin 4.8 (3.9-5) g/dL Albumin/Globulin Ratio 1.5 % Lipase 17 (13-60) units/L Urine Color (Yellow) Urine Turbidity (Clear) Urine pH (5.0-7.0) Ur Specific [place] (1.003-1.030) Urine Protein (Negative) mg/dL Urine Glucose (UA) (Negative) mg/dL Urine Ketones (Negative) mg/dL Urine Blood (Negative) Urine Nitrite (Negative) Ur Reducing Substances Urine Bilirubin (Negative) Urine Ictotest Urine Urobilinogen (<2.0) mg/dL Ur Leukocyte Esterase (Negative) Urine WBC (Auto) (0.0-6.0) /HPF Urine RBC (Auto) (0.0-6.0) /HPF U Epithel Cells (Auto) (0-13.0) /HPF Urine Bacteria (Auto) (Negative) /HPF Urine Mucus /HPF 03/06/22 03/06/22 Range/Units 17:45 Unknown WBC (4.5-11.0) K/mm3 RBC (3.65-5.03) M/mm3 Hgb (10.1-14.3) gm/dl Hct (30.3-42.9) % MCV (79-97) fl MCH (28-32) pg MCHC (30-34) % RDW (13.2-15.2) % Plt Count (140-440) K/mm3 Lymph % (Auto) (13.4-35.0) % [place] % (Auto) (0.0-7.3) % Eos % (Auto) (0.0-4.3) % Baso % (Auto) (0.0-1.8) % Lymph # (Auto) (1.2-5.4) K/mm3 [place] # (Auto) (0.0-0.8) K/mm3 Eos # (Auto) (0.0-0.4) K/mm3 Baso # (Auto) (0.0-0.1) K/mm3 Seg Neutrophils % (40.0-70.0) % Seg Neutrophils # (1.8-7.7) K/mm3 Sodium (137-145) mmol/L Potassium (3.6-5.0) mmol/L Chloride (98-107) mmol/L Carbon Dioxide (22-30) mmol/L Anion Gap mmol/L BUN (7-17) mg/dL Creatinine (0.6-1.2) mg/dL Estimated GFR ml/min BUN/Creatinine Ratio % Glucose (65-100) mg/dL POC Glucose 227 H (70-105) mg/dL Calcium (8.4-10.2) mg/dL Total Bilirubin (0.1-1.2) mg/dL AST (5-40) units/L ALT (7-56) units/L Alkaline Phosphatase (35-129) units/L Total Protein (6.3-8.2) g/dL Albumin (3.9-5) g/dL Albumin/Globulin Ratio % Lipase (13-60) units/L Urine Color Straw (Yellow) Urine Turbidity Clear (Clear) Urine pH 5.0 (5.0-7.0) Ur Specific [place] 1.015 (1.003-1.030) Urine Protein 100 mg/dl (Negative) mg/dL Urine Glucose (UA) 250 (Negative) mg/dL Urine Ketones 40 (Negative) mg/dL Urine Blood Trace (Negative) Urine Nitrite Negative (Negative) Ur Reducing Substances Not Reportable Urine Bilirubin Negative (Negative) Urine Ictotest Not Reportable Urine Urobilinogen < 2.0 (<2.0) mg/dL Ur Leukocyte Esterase Negative (Negative) Urine WBC (Auto) 1.0 (0.0-6.0) /HPF Urine RBC (Auto) < 1.0 (0.0-6.0) /HPF U Epithel Cells (Auto) 6.0 (0-13.0) /HPF Urine Bacteria (Auto) 3+ (Negative) /HPF Urine Mucus Few /HPF - Medical Decision Making 56-year-old female presenting to the hospital nausea and vomiting secondary g astroparesis signout to me to follow-up after treatment. Patient is feeling much better with treatment received prior to my evaluation. I provided insulin for hyperglycemia with improvement in blood glucose level. Patient was able to tolerate p.o. intake and food prior to discharge. She is requesting Phenergan and Bentyl which have both helped in the past Critical Care Time: No Critical care attestation.: If time is entered above; I have spent that time in minutes in the direct care of this critically ill patient, excluding procedure time. ED Disposition Is pt being admited?: No Does the pt Need Aspirin: No Time of Disposition: 18:29
[2022-03-06] MEDS ORDERED: HYDROmorphone 1 MG/1 ML INJ IV ONE (14:29)
[2022-03-06] MEDS ORDERED: SODIUM CHLORIDE 0.9% 1000 ML 1,000 ML IV ONE (14:29)
[2022-03-06] MEDS ORDERED: INSULIN REGULAR, HUMAN 100 UNITS/1 ML IV ONE (17:07)
[2022-03-06 17:46] LABS: Bacteria,Urine 3+ /HPF (Negative); Mucus,Urine FEW /HPF; RBC,Urine < 1.0 /HPF (0.0-6.0)
[2022-03-06 18:06] VITALS: BP 183/81
[2022-03-06 18:08] LABS: Bilirubin,Urine Negative (Negative); Blood,Urine Trace (Negative); Color,Urine Straw (Yellow); Urobilinogen,Urine < 2.0 mg/dL (<2.0)
== END 2022-03-06 18:44 | disposition home or self-care (01) ==
LOC: ED 10:42
DX: K31.84 Gastroparesis (principal); E11.65 Type 2 diabetes mellitus with hyperglycemia; E11.9 Type 2 diabetes mellitus without complications; M19.90 Unspecified osteoarthritis, unspecified site; F41.9 Anxiety disorder, unspecified; J45.909 Unspecified asthma, uncomplicated; Z90.49 Acquired absence of other specified parts of digestive tract; Z88.1 Allergy status to other antibiotic agents; Z91.013 Allergy to seafood; Z91.09 Other allergy status, other than to drugs and biological substances; Z79.899 Other long term (current) drug therapy
CPT/HCPCS: 36415; 80053; 81001; 82962; 83690; 85025; 96361; 96372; 96374; 96375; 99284; J1170; J1630; J2405; J7030; Q9967; J1815